=== PATIENT | male | born 1995 | race African-American/Black ===

== ENCOUNTER 2017-01-28 00:16 | Emergency (ER) | payer OTHER ==
[~2017-01-28] VITALS: Ht 190.5 cm; Wt 70.7 kg
[2017-01-28] MEDS ORDERED: IBUPROFEN 800MG TABLET PO ONE (01:00)
[2017-01-28] MEDS ORDERED: TETANUS, DIPHTHERIA, PERTUSSIS VAC/PF 0.5ML (>7YR OLD) IM ONE (01:15)
[2017-01-28] MEDS ORDERED: HYDROCODONE/ACETAMINOPHEN 5/325MG TABLET PO ONE (03:15)
[2017-01-28] MEDS ORDERED: BACITRACIN ZINC OINT UDPKT TOP ONE (03:15)
[2017-01-28] MEDS ORDERED: LIDOCAINE HCL 1% 20ML VIAL (Pyxis) INJ MC ONE (03:15)
[2017-01-28 04:07] VITALS: BP 109/73
== END 2017-01-28 04:43 | disposition home or self-care (01) ==
LOC: ER 00:17
DX: S61.411A Laceration without foreign body of right hand, initial encounter (principal); W34.00XA Accidental discharge from unspecified firearms or gun, initial encounter; Y93.89 Activity, other specified; Y92.89 Other specified places as the place of occurrence of the external cause; Y99.8 Other external cause status
CPT/HCPCS: 12001; 73130; 90471; 90715; 99284; A4217; J3490; Z7610

== ENCOUNTER 2023-09-02 19:16 | Emergency (ER) | payer MEDICAID, OTHER ==
[~2023-09-02] VITALS: Ht 193 cm; Wt 74.6 kg
[2023-09-02 19:44] VITALS: O2SAT 100
[2023-09-02] MEDS ORDERED: NAPR375T5 MT (21:10)
[2023-09-02] MEDS ORDERED: AMOX1TAB16 MT (21:10)
[2023-09-02] MEDS ORDERED: TOPUD MT (21:10)
[2023-09-02] MEDS ORDERED: KETOROLAC 30MG/ML VIAL IM ONE (21:15)
[2023-09-02 21:34] VITALS: BP 127/75
[2023-09-02 21:39] VITALS: PULSE 55; RESP 18; TEMP 98.3
== END 2023-09-02 21:40 | disposition home or self-care (01) ==
LOC: ER 19:16
DX: S02.5XXA Fracture of tooth (traumatic), initial encounter for closed fracture (principal); S06.9XAA Unspecified intracranial injury with loss of consciousness status unknown, initial encounter; X58.XXXA Exposure to other specified factors, initial encounter; Y93.89 Activity, other specified; Y92.89 Other specified places as the place of occurrence of the external cause; Y99.8 Other external cause status
CPT/HCPCS: 96372; 99283; J1885; Z7610 ×2